=== PATIENT | female | born 1960 | race Caucasian/White ===

== ENCOUNTER 2017-01-07 16:12 | Emergency (ER) | payer OTHER ==
[~2017-01-07] VITALS: Ht 167.6 cm; Wt 126.5 kg
[~2017-01-07 16:12] MED LIST: METOPROLOL SUC100 MG PO; PREMARIN1.25 MG PO
[2017-01-07] MEDS ORDERED: GABAPENTIN300 MG PO (16:19)
[2017-01-07] MEDS ORDERED: ELIQUIS5 MG PO (16:20)
[2017-01-07] MEDS ORDERED: CARVEDILOL12.5 MG PO (16:20)
== END 2017-01-07 17:58 | disposition home or self-care (01) ==
LOC: ED 16:12
DX: I77.71 Dissection of carotid artery (principal); I10 Essential (primary) hypertension; Z90.710 Acquired absence of both cervix and uterus; Z90.49 Acquired absence of other specified parts of digestive tract; Z88.5 Allergy status to narcotic agent; Z88.8 Allergy status to other drugs, medicaments and biological substances; Z79.899 Other long term (current) drug therapy
CPT/HCPCS: 70496; 70498; 80048; 85025; 85610; 99284; Q9967